=== PATIENT | female | born 1990 | race Caucasian/White ===

== ENCOUNTER 2019-09-15 18:47 | Emergency (ER) | payer MEDICAID ==
[~2019-09-15] VITALS: Ht 170.2 cm; Wt 81.8 kg
[2019-09-15 18:53] VITALS: Ht 170.2 cm; Wt 81.8 kg
[2019-09-15 19:17] LABS: BILIRUBIN NEGATIVE (NEGATIVE); GLUCOSE NEGATIVE (NEGATIVE); KETONE NEGATIVE (NEGATIVE); NITRITE POSITIVE (NEGATIVE); SPECIFIC GRAVITY 1.025 (1.005-1.020); UROBILINOGEN NORMAL (NORMAL)
[2019-09-15 19:18] LABS: BACTERIA MANY /hpf (NEGATIVE); EPITHELIAL CELLS 0-5 /hpf (0-5)
[2019-09-15] MEDS ORDERED: PHENAZOPYRIDIN200 MG PO (20:01)
[2019-09-15] MEDS ORDERED: OMNICEF300 MG PO (20:01)
[2019-09-15 20:50] VITALS: BP 112/87
== END 2019-09-15 21:58 | disposition home or self-care (01) ==
LOC: D.ER 18:47
PROVIDERS: Family Medicine
DX: N39.0 Urinary tract infection, site not specified (principal); J45.909 Unspecified asthma, uncomplicated; Z72.0 Tobacco use

== ENCOUNTER 2019-10-03 16:14 | Emergency (ER) | payer MEDICAID ==
[~2019-10-03] VITALS: Ht 170.2 cm; Wt 81.8 kg
[~2019-10-03 16:14] MED LIST: OMNICEF300 MG PO; PHENAZOPYRIDIN200 MG PO
[2019-10-03 16:19] VITALS: Ht 170.2 cm; Wt 81.8 kg
[2019-10-03 16:37] LABS: BASOPHILS 0.4 % (0-2); EOSINOPHILS 3.7 % (0-7); HEMATOCRIT 37.8 % (36.0-48.0); HEMOGLOBIN 12.2 g/dL (12-16); IMMATURE GRANULOCYTES 0.3 % (0-5); LYMPHOCYTES 25.2 % (15-50); MCHC 32.3 g/dL (31.0-37.0); MCV 93.1 fL (80.0-100.0); MEAN PLATELET VOLUME 8.9 fL (7.4-10.4); NEUTROPHILS 62.4 % (40-80); PLATELET COUNT 398 10x3/uL (130-400); RBC 4.06 10x6/uL (4.00-5.40); RDW 13.4 % (11.5-14.5); WBC 7.2 10x3/uL (4.8-10.8)
[2019-10-03 16:48] LABS: CALC OSMOLALITY 281 mosm/kg (275-300); CALCIUM 8.7 mg/dL (8.5-10.1); CHLORIDE - SERUM 104 mmol/L (98-107); CREATININE - SERUM 1.1 mg/dL (0.6-1.3); GLUCOSE 96 mg/dL (74-106); POTASSIUM - SERUM 4.2 mmol/L (3.5-5.1); SODIUM 141 mmol/L (136-145); UREA NITROGEN 14 mg/dL (7-18); eGFR NON AFRICAN AMERICAN 62 mL/min (90-120)
[2019-10-03 16:55] LABS: BILIRUBIN NEGATIVE (NEGATIVE); GLUCOSE NEGATIVE (NEGATIVE); KETONE NEGATIVE (NEGATIVE); NITRITE NEGATIVE (NEGATIVE); UROBILINOGEN NORMAL (NORMAL)
[2019-10-03 16:57] LABS: ALBUMIN 3.9 g/dL (3.4-5.0); ALKALINE PHOSPHATASE 74 U/L (30-120); ALT (SGPT) 16 U/L (10-68); AMYLASE - SERUM 38 U/L (25-115); BILIRUBIN - TOTAL 0.26 mg/dL (0.2-1.3); LIPASE 68 U/L (73-393); PROTEIN - SERUM 7.5 g/dL (6.4-8.2)
[2019-10-03 16:58] LABS: EPITHELIAL CELLS 0-5 /hpf (0-5); RED CELLS - URINE 0-5 /hpf (0-5); WHITE CELLS - URINE 0-5 /hpf (NEGATIVE)
[2019-10-03 16:59] LABS: BACTERIA FEW /hpf (NEGATIVE); CALCIUM OXALATE CRYSTALS 0-5 /hpf (NONE SEEN); TROPONIN-I < 0.017 ng/mL (0.000-0.060)
[2019-10-03 17:01] LABS: HCG URINE NEGATIVE (NEGATIVE)
[2019-10-03] MEDS ORDERED: ZOFRAN4 MG PO (18:11)
[2019-10-03] MEDS ORDERED: FLOMAX0.4 MG PO (18:11)
[2019-10-03] MEDS ORDERED: TORADOL10 MG PO (18:11)
[2019-10-03 19:19] VITALS: BP 132/89
== END 2019-10-03 19:18 | disposition home or self-care (01) ==
LOC: D.ER 16:14
PROVIDERS: Emergency Medicine
DX: N20.0 Calculus of kidney (principal); J45.909 Unspecified asthma, uncomplicated; Z72.0 Tobacco use; M54.9 Dorsalgia, unspecified; R10.31 Right lower quadrant pain

== ENCOUNTER 2019-12-09 12:19 | Emergency (ER) | payer MEDICAID ==
[~2019-12-09] VITALS: Ht 170.2 cm; Wt 79.5 kg
[~2019-12-09 12:19] MED LIST changes: +FLOMAX0.4 MG PO; +TORADOL10 MG PO; +ZOFRAN4 MG PO
[2019-12-09 12:26] VITALS: Ht 170.2 cm; Wt 79.5 kg
[2019-12-09 13:46] LABS: HCG URINE NEGATIVE (NEGATIVE)
[2019-12-09 13:51] LABS: BASOPHILS 0.1 % (0-2); EOSINOPHILS 1.3 % (0-7); HEMOGLOBIN 11.8 g/dL (12-16); IMMATURE GRANULOCYTES 0.3 % (0-5); MCH 30.5 pg (26.0-34.0); MCHC 32.8 g/dL (31.0-37.0); MEAN PLATELET VOLUME 9.2 fL (7.4-10.4); MONOCYTES 7.4 % (2-11); NEUTROPHILS 81.9 % (40-80); PLATELET COUNT 363 10x3/uL (130-400); RBC 3.87 10x6/uL (4.00-5.40); RDW 13.8 % (11.5-14.5); WBC 14.2 10x3/uL (4.8-10.8)
[2019-12-09 14:09] LABS: BACTERIA MODERATE /hpf (NEGATIVE); BILIRUBIN NEGATIVE (NEGATIVE); EPITHELIAL CELLS 0-5 /hpf (0-5); GLUCOSE NEGATIVE (NEGATIVE); KETONE NEGATIVE (NEGATIVE); NITRITE NEGATIVE (NEGATIVE); RED CELLS - URINE 0-5 /hpf (0-5); WHITE CELLS - URINE OCC /hpf (NEGATIVE)
[2019-12-09 14:16] LABS: ANION GAP 8.8 mmol/L (8-16); CALCIUM 8.3 mg/dL (8.5-10.1); CARBON DIOXIDE 29.9 mmol/L (21.0-32.0); POTASSIUM - SERUM 3.7 mmol/L (3.5-5.1)
[2019-12-09 14:25] LABS: ALBUMIN 3.5 g/dL (3.4-5.0); BILIRUBIN - TOTAL 0.34 mg/dL (0.2-1.3); PROTEIN - SERUM 6.9 g/dL (6.4-8.2)
[2019-12-09] MEDS ORDERED: CIPRO500 MG PO (15:17)
[2019-12-09] MEDS ORDERED: MEDROL DOSE PACK4 MG PO (15:17)
[2019-12-09 16:17] VITALS: BP 126/81
== END 2019-12-09 16:18 | disposition home or self-care (01) ==
LOC: D.ER 12:19
PROVIDERS: Family Medicine
DX: J06.9 Acute upper respiratory infection, unspecified (principal); R68.89 Other general symptoms and signs; J45.909 Unspecified asthma, uncomplicated; Z72.0 Tobacco use